=== PATIENT | female | born 1975 | race Caucasian/White ===

== ENCOUNTER 2022-03-31 17:43 | Emergency (ER) | payer SELFPAY ==
[~2022-03-31] VITALS: Ht 157.5 cm; Wt 79.0 kg
[2022-03-31] MEDS ORDERED: LIDOCAINE HCL/EPINEPHRINE 1%-EPI 1:100,000 20 ML VIAL INFIL ONE (21:30)
[2022-03-31] MEDS ORDERED: LIDOCAINE HCL/PF 1% 10 MG/ML 5ML VIAL INFIL ONE (21:30)
[2022-03-31] MEDS ORDERED: BACITRACIN ZINC OINT UDPKT TOP ONE (21:30)
[2022-03-31] MEDS ORDERED: ACETAMINOPHEN 325MG TABLET PO ONE (21:30)
[2022-03-31] MEDS ORDERED: CEPH500T MT (22:54)
[2022-03-31] MEDS ORDERED: SULF1TAB48 MT (22:54)
[2022-03-31 23:20] VITALS: BP 142/95
== END 2022-03-31 23:25 | disposition home or self-care (01) ==
LOC: ER 17:43
DX: L02.31 Cutaneous abscess of buttock (principal)
CPT/HCPCS: 10060; 81025; 99283; J3490; Z7610